=== PATIENT | female | born 1990 | race Caucasian/White ===

== ENCOUNTER 2016-10-31 04:07 | Inpatient (IN) ==
[2016-10-31 04:30] LABS: URINE SOURCE VOIDED
[2016-10-31 04:40] LABS: BILIRUBIN URINE NEGATIVE (NEGATIVE); BLOOD URINE NEGATIVE (NEGATIVE); CLARITY CLEAR (CLEAR); COLOR YELLOW; GLUCOSE URINE NEGATIVE (NEGATIVE); LEUKOCYTES URINE NEGATIVE (NEGATIVE); NITRITE URINE NEGATIVE (NEGATIVE); PH URINE 6.5; PROTEIN URINE NEGATIVE (NEGATIVE); UROBILINOGEN URINE NORMAL
[2016-10-31 04:47] LABS: UR AMPHETAMINES QUAL NONE DETECTED (NONE DETECT); UR BARBITUATES QUAL PRESUMPTIVE POSITIVE (NONE DETECT); UR BENZODIAZEPIN QUAL NONE DETECTED (NONE DETECT); UR CANNABINOIDS QUAL NONE DETECTED (NONE DETECT); UR COCAINE QUAL NONE DETECTED (NONE DETECT); UR MDMA QUAL NONE DETECTED (NONE DETECT); UR METHADONE QUAL NONE DETECTED (NONE DETECT); UR METHAMPHETAMINE QUAL NONE DETECTED (NONE DETECT); UR OPIATES QUAL NONE DETECTED (NONE DETECT); UR OXYCODONE QUAL NONE DETECTED (NONE DETECT); UR PCP QUAL NONE DETECTED (NONE DETECT); UR TCA QUAL NONE DETECTED (NONE DETECT)
[2016-10-31] MEDS ORDERED: REGLAN PO ONE (08:18)
[2016-10-31] MEDS ORDERED: LR 500 ML IV ONE (08:18)
[2016-10-31] MEDS ORDERED: ZOFRAN IV PRN (08:18)
[2016-10-31] MEDS ORDERED: PEPCID PO ONE (08:18)
[2016-10-31] MEDS ORDERED: KEFZOL 1 GM/D5W 1 GM/50 ML IVPB IV PRN (08:18)
[2016-10-31] MEDS ORDERED: PEPCID PO PRN (08:18)
[2016-10-31] MEDS ORDERED: PITOCIN 30 UNITS/LR 30 UNITS/500 ML IV.SOLN IV SCH (08:18)
[2016-10-31] MEDS ORDERED: PEPCID IV PRN (08:18)
[2016-10-31] MEDS ORDERED: TYLENOL PO PRN (08:18)
[2016-10-31] MEDS ORDERED: STADOL IV PRN (08:18)
[2016-10-31] MEDS ORDERED: SODIUM CHLORIDE 0.9% INJ SCH (08:30)
[2016-10-31] MEDS: LR 1,000 ML IV SCH ×2 (08:56→09:22)
[2016-10-31 09:10] LABS: MANUAL DIFF NEEDED? NO
[2016-10-31 09:12] LABS: BASO% 0.3 % (0.0-0.8); EOS# 0.04 X1000 (0.0-0.7); EOS% 0.4 % (0.0-10.0); HEMATOCRIT 41.3 % (37.0-47.0); HEMOGLOBIN 14.4 g/dL (12.0-16.0); IMM GRAN# 0.09 X1000 (0.0-0.04); IMM GRAN% 0.8 % (0.0-0.5); LYMPH# 2.68 X1000 (1.2-3.4); LYMPH% 23.6 % (20.5-51.1); MCHC 34.9 g/dL (33-37); MONO# 0.69 X1000 (0.11-0.59); MONO% 6.1 % (1.7-9.3); MPV 11.4 FL (7.4-10.4); NEUT% 68.8 % (42.2-75.2); PLT 189 X1000 (130-400); RBC 4.64 XMIL (4.2-5.4)
[2016-10-31] MEDS ORDERED: FENTANYL-BUPIV-NS 2 MCG-0.1% 200 ML EPIDURAL PRN (09:42)
[2016-10-31] MEDS ORDERED: FIORICET PO ONE (11:27)
[2016-10-31] MEDS ORDERED: MINERAL OIL ONE (12:24)
[2016-10-31] MEDS ORDERED: XYLOCAINE-MPF 1% INJ ONE (12:24)
--- NOTE | 2016-10-31 14:27 | OPERATIVE NOTE ---
PROCEDURE DATE: 10/31/2016 PREDELIVERY DIAGNOSES: 1. Intrauterine at 39+ weeks. 2. Late care. 3. Tobacco use. 4. Seizure disorder. 5. History of migraines. POSTDELIVERY DIAGNOSES: 1. Intrauterine at 39+ weeks. 2. Late care. 3. Tobacco use. 4. Seizure disorder. 5. History of migraines. PROCEDURE: Vaginal delivery. PHYSICIAN: Dr. Cuba Merlos. ANESTHESIA: Epidural by Dr. Brad Hedrick. FINDINGS: Viable female , 9/9 Apgars, 6 pounds 14 ounces. Cord was 3 vessels. Placenta was spontaneous, intact. There were no lacerations or tears. ESTIMATED BLOOD LOSS: 100 mL and all counts were correct. Please refer to Ms. Lowry' records. She started care at approximately 20 weeks with the above history. She did not have any laboratory testing during her , and this morning started having contractions. Presented early and was found to be in labor. Was augmented with Pitocin and artificially ruptured. Received epidural anesthesia and labored to complete without distress or dystocia and soon after crowned, at which point the bed was broken down, and she was prepped and draped. With continued contractions, she delivered a viable female infant, occiput anterior, over an intact perineum. Once head delivered, shoulders and rest of the body delivered without difficulty and the infant was placed on mother's abdomen. Cord was doubly clamped and cut. Care of infant was taken over by nursery personnel. Cord blood was obtained and it was noted to be a 3-vessel cord. Then gentle traction on the cord resulted in delivery of the placenta after approximately 2 minutes. It was inspected and found to be intact and then discarded. The perineum and vagina were inspected. There were no lacerations or tears. There were no clots or foreign material. All counts were correct. Estimated blood loss 100 mL. Expect routine . cc: Cuba Merlos MD
[2016-10-31] MEDS ORDERED: XYLOCAINE-MPF 1% INJ PRN (17:45)
[2016-10-31] MEDS ORDERED: MINERAL OIL PO PRN (17:45)
[2016-10-31] MEDS ORDERED: PITOCIN 30 UNITS/LR 30 UNITS/500 ML IV.SOLN IV ONE (17:45)
[2016-10-31] MEDS ORDERED: HYDROXYZINE PO PRN (17:45)
[2016-10-31] MEDS ORDERED: PERI MEDS (DERMOPLAST/NUPERCAINAL/TUCKS) MISC PRN (17:45)
[2016-10-31] MEDS ORDERED: CYTOTEC PO PRN (17:45)
[2016-10-31] MEDS ORDERED: HYDROXYZINE IM PRN (17:45)
[2016-10-31] MEDS ORDERED: BENADRYL PO PRN (17:45)
[2016-10-31] MEDS ORDERED: PITOCIN IM PRN (17:45)
[2016-10-31] MEDS ORDERED: AMBIEN PO PRN (17:45)
[2016-10-31] MEDS ORDERED: PITOCIN 20 UNITS/LR 20 UNITS/1,000 ML IV.SOLN IV SCH (17:45)
[2016-10-31] MEDS ORDERED: BOOSTRIX VACCINE IM ONE (17:45)
[2016-10-31] MEDS ORDERED: BENADRYL IV PRN (17:45)
[2016-10-31] MEDS ORDERED: M-M-R II VACCINE SUBQ ONE (17:45)
[2016-10-31] MEDS: PERICOLACE PO SCH (20:24)
[2016-10-31] MEDS: MOTRIN PO PRN (20:34)
[2016-10-31] MEDS: NORCO-5 PO PRN (20:34)
[2016-11-01] MEDS: NORCO-10 PO PRN (02:56)
[2016-11-01 06:55] LABS: MANUAL DIFF NEEDED? NO
[2016-11-01 08:04] LABS: BASO% 0.2 % (0.0-0.8); EOS# 0.11 X1000 (0.0-0.7); EOS% 0.9 % (0.0-10.0); HEMATOCRIT 33.6 % (37.0-47.0); HEMOGLOBIN 11.4 g/dL (12.0-16.0); IMM GRAN# 0.05 X1000 (0.0-0.04); IMM GRAN% 0.4 % (0.0-0.5); LYMPH# 2.29 X1000 (1.2-3.4); LYMPH% 18.8 % (20.5-51.1); MCHC 33.9 g/dL (33-37); MCV 91.3 FL (81-99); MONO# 0.74 X1000 (0.11-0.59); MONO% 6.1 % (1.7-9.3); MPV 11.6 FL (7.4-10.4); NEUT% 73.6 % (42.2-75.2); PLT 170 X1000 (130-400); RBC 3.68 XMIL (4.2-5.4)
[2016-11-01] MEDS: NORCO-5 PO PRN ×3 (08:45→20:10)
[2016-11-01] MEDS: MOTRIN PO PRN ×2 (08:45→20:10)
[2016-11-01] MEDS: PERICOLACE PO SCH (20:11)
[2016-11-02] MEDS: NORCO-10 PO PRN ×2 (01:15→07:44)
[2016-11-02] MEDS: MOTRIN PO PRN (07:44)
[2016-11-02 08:32] VITALS: BP 117/69
== END 2016-11-02 11:00 | disposition home or self-care (01) ==
LOC: P.OPLD 04:07 → P.LD 04:11 → P.WC 16:00
PROVIDERS: ADMIT Obstetrics & Gynecology; ATTEND Obstetrics & Gynecology

== ENCOUNTER 2016-12-07 15:46 | Observation (INO) ==
[2016-12-07 16:44] LABS: MANUAL DIFF NEEDED? NO
[2016-12-07 16:47] LABS: BASO% 0.4 % (0.0-0.8); EOS# 0.09 X1000 (0.0-0.7); EOS% 1.3 % (0.0-10.0); HEMATOCRIT 43.3 % (37.0-47.0); HEMOGLOBIN 15.1 g/dL (12.0-16.0); LYMPH# 2.32 X1000 (1.2-3.4); LYMPH% 32.5 % (20.5-51.1); MCH 30.8 PG (27-31); MCHC 34.9 g/dL (33-37); MCV 88.4 FL (81-99); MONO# 0.33 X1000 (0.11-0.59); MONO% 4.6 % (1.7-9.3); MPV 10.7 FL (7.4-10.4); NEUT% 61.2 % (42.2-75.2); PLT 266 X1000 (130-400)
[2016-12-07 17:01] LABS: AGAP 20; ALBUMIN 4.9 g/dL (3.5-5.0); ALKALINE PHOSPHATASE 61 U/L (32-104); BUN 10 mg/dL (8-22); CALCIUM 9.5 mg/dL (8.8-10.2); CHLORIDE 101 mmol/L (98-107); CK PROFILE 54 U/L (24-173); COSMO 279; GOT 21 U/L (10-30); GPT 24 U/L (10-36); MAGNESIUM 1.7 mg/dL (1.5-2.7); POTASSIUM 3.2 mmol/L (3.5-5.1); SODIUM 141 mmol/L (136-145); TCO2 20 mmol/L (25-35); TOTAL BILIRUBIN 0.55 mg/dL (0.20-1.00); TOTAL PROTEIN 7.9 g/dL (6.3-8.3)
[2016-12-07 17:02] LABS: INR 1.03; PROTIME 10.8 Seconds (9.2-11.7); PTT 27.4 Seconds (22.0-36.0)
[2016-12-07] MEDS ORDERED: KLOR-CON PO ONE (17:39)
--- NOTE | 2016-12-07 17:58 | Diag Imaging Result Doc PS360 ---
EXAM: CHEST-2 VIEWS INDICATION: palpitations TECHNIQUE: 2 views COMPARISON: 07/28/2015 FINDINGS: The lungs are grossly clear. There is no discrete pleural fluid collection or pneumothorax. The cardiomediastinal silhouette and central vasculature are grossly unremarkable. IMPRESSION: No evidence of acute pathology by plain radiograph. Electronically signed by Cuba Mari 12/07/2016 5:55 PM
--- NOTE | 2016-12-07 18:13 | PROVIDER DOCUMENTATION ---
This chart was entered by Elisabeth Ariza Scribe, acting as scribe for Sabina Hassan MD. HPI-General Adult - General Chief Complaint: Palpitations Stated Complaint: palpitations Time Seen by Provider: 12/07/16 15:59 Source: patient Allergies/Adverse Reactions: Patient Allergies Allergy/AdvReac Type Severity Reaction Status Date / Time No Known Allergies Allergy Verified 12/07/16 16:20 Home Medications: Home Medication List Medication Instructions Recorded Confirmed Last Taken Type Butalbital/APAP/Caffeine [Fioricet] 1 each PO TID #30 tablet 11/10/15 10/31/16 Unknown Rx Promethazine [Phenergan] 25 mg PO Q6H PRN PRN #20 tablet 11/10/15 10/31/16 Unknown Rx Hydrocodone/APAP 5 mg/325 mg 1 each PO Q3-4H PRN PRN #30 tablet 11/02/16 Unknown Rx [[place]-5] Ibuprofen [Motrin] 800 mg PO Q8H PRN PRN #30 tablet 11/02/16 Unknown Rx - History of Present Illness -Gen Adult Nature of Presenting Problems: Pt is a 26 year old female who came to the ED with a cc of having palpitations for the last three days. Pt reports the palpitations get worse when she gets up and moves around. pt [place] [facility] [place]. pt reports she called her gyno this morning reporting the palpitations and he said come to the ED. Location of Pain/Injury: reports: none Pain Radiation: reports: no radiation Quality of Pain: reports: none Onset/Duration: reports: 3 days ago Timing: reports: still present Context/Activities at Onset: reports: none Modifying Factors: improves with: nothing Similar Symptoms Previously?: Yes Recently seen or treated by another doctor?: Yes Review of Systems - Adult - REVIEW OF SYSTEMS - ADULT Constitutional: reports: weight loss. denies: chills, fatique Ears, Nose, Mouth & Throat: denies: nose pain, throat pain Cardiovascular: reports: irregular heart rate. denies: chest pain, heart murmur , orthopnea, syncope Respiratory: denies: cough, shortness of breath Gastrointestinal: denies: diarrhea, nausea, vomiting Past History - Adult - PAST MEDICAL HISTORY-ADULT Review of Records: reports: Old Records Reviewed, Nursing Assessment Review Major Childhood Illnesses: reports: denies history Cardiovascular: reports: denies history Respiratory: reports: denies history Gastrointestinal: reports: denies history Obstetrical/Gynecological: reports: denies history Genitourinary: reports: denies history Musculoskeletal: reports: denies history Neurological: reports: headaches/migraines, Seizures/Epilepsy Endocrine/Immune: reports: denies history Other Conditions: reports: denies history - PRIOR SURGERIES/PROCEDURES Surgical/Procedure History: reports: none - IMMUNIZATION STATUS Childhood Immunizations: UTD Flu Vaccine: See Nurse Assessment - FAMILY HISTORY Family History: reviewed, not pertinent Physical Exam-General - PHYSICAL EXAM-ADULT Initial Vital Signs Reviewed: Yes - CONSTITUTIONAL General Appearance: appears well, alert, no apparent distress - EYES Eyes: PERRL/EOMI, pink conjunctivae - HEAD, EARS, NOSE, MOUTH & THROAT HENMT: normocephalic/atraumatic, moist mucous membranes - NECK Neck: non-tender, full range of motion - RESPIRATORY Respiratory: chest non-tender, lungs clear - CARDIOVASCULAR Cardiovascular: normal peripheral pulses, regular rate, rhythm - GASTROINTESTINAL (ABDOMEN) Abdominal Exam: normal bowel sounds, non tender, soft - MUSCULOSKELETAL Back Exam: normal inspection, no CVA tenderness Extremity: non-tender - SKIN Integumentary: normal color, normal turgor - NEUROLOGIC Neurologic: grossly normal - PSYCHIATRIC Psych/Mental Status: normal mood/affect, normal thought content, normal thought process, oriented x 3 Progress - PLAN OF CARE/RESULTS Progress/Plan/Lab Results: Vital Signs - 8 hr 12/07/16 15:49 Temperature 98.5 F Pulse Rate 85 Respiratory Rate 18 Blood Pressure 117/65 O2 Sat by Pulse Oximetry 100 Orders Category Date Time Status Cardiac Monitoring DIRECTED Care 12/07/16 16:25 Active Saline Loc NOW Care 12/07/16 16:25 Active CHEST-2 VIEWS [RAD] Stat Exams 12/07/16 16:25 Ordered CBC WITH ELECTRONIC DIFF [HEME] Stat Lab 12/07/16 16:31 Ordered CK PROFILE [SP CHEM] Stat Lab 12/07/16 16:31 Ordered COMPREHENSIVE METABOLIC PANEL [CHEM] Stat Lab 12/07/16 16:31 Ordered D-DIMER [CHEM] Stat Lab 12/07/16 16:31 Ordered MAGNESIUM [CHEM] Stat Lab 12/07/16 16:31 Ordered PRO B-NATRIURETIC PEPTIDE Stat Lab 12/07/16 16:31 Ordered PROTIME WITH INR [COAG] Stat Lab 12/07/16 16:31 Ordered PTT [COAG] Stat Lab 12/07/16 16:31 Ordered TROPONIN T Stat Lab 12/07/16 16:31 Ordered TSH Stat Lab 12/07/16 16:31 Ordered EKG [EKG] Stat Ther 12/07/16 16:25 Ordered pt very anxious about leaving thinking the that they will occur again. i asked pt to stand and noted that her heart rate went to mid 140's. i advised pt to sit down. i will admit for eval of paraxysmal tachycardia. pt agree with plan case dw dr zee with hospitalist will evaluate the pt for admission Result Diagrams: 12/07/16 16:08 12/07/16 16:08 - REASSESSMENT Reassessment #1 Time Reassessed: 18:02 (Pt was concerned about being sent home due to her palpitations. When Dr. Hassan told the pt to stand the pt heart rate went up and slowly crept down when she sat back down. Pt will be admitted. ) Status: unchanged - EKG 1 Time of EKG reading by physician:: 16:08 EKG Read and Signed by:: Phill Alberts EKG Interpretation (*Must complete 3 of following elements*): Normal Rate: 67 Rhythm: NSR - XRAY 1 XRAY Study: Chest (NAD) Departure - Departure Date of Disposition Decision: 12/07/16 Time of Disposition Decision: 17:51 DIAGNOSIS: Palpitation, Paroxysmal tachycardia Disposition: ADMITTED INPATIENT 09 Certified Medical Emergency: Emergent Condition: Serious Additional Freetext Instructions: ED Follow Up Instructions: You have been treated by a care provider in the Emergency Department. These instructions are being provided to you so you can have an understanding of how to care for yourself upon discharge. Upon discharge from the Emergency Department, you are responsible for making arrangements for follow-up care by a physician of your choice. Take all prescribed medications as directed. Return to the Emergency Department immediately for any new or worsening symptoms. You may call the Physician Referral phone number at [phone] to obtain a list of Physicians who are taking new patients. Referrals and Follow-Ups: None,PCP [Primary Care Provider] - - Critical Care Note This patient required my direct & personal management of CC.: No Attestation - Physician/ KATIE Attestation The physician spent face to face time with patient:: Yes Advanced Practice Provider documentation review:: Supervising physician onsite and consulted in the evaluation and care of this patient. The physician did have a face to face encounter with the patient. This chart was documented by the indicated scribe, (Elisabeth Ariza Scribe) and accurately reflects the services I performed and decisions made by me, Sabina Hassan MD, as attested by the provider's signature.
[2016-12-07] MEDS ORDERED: ZOFRAN IV PRN (19:01)
[2016-12-07] MEDS ORDERED: TYLENOL PO PRN (19:01)
[2016-12-07] MEDS ORDERED: ATIVAN PO PRN (19:01)
[2016-12-07] MEDS ORDERED: NS + KCL 40 MEQ 1,000 ML IV ONE (19:01)
--- NOTE | 2016-12-07 19:27 | HISTORY AND PHYSICAL ---
HISTORY OF PRESENT ILLNESS: This is a 26-year-old who has an unremarkable past medical history. She has 3 children. Six weeks ago she had her third child with normal labor and delivery. She had a little bit of depression but otherwise unremarkable. She did state that she was taking some hydrocodone, it just felt like it was giving her more energy. At one point I think she took 5 in a day. She then experienced some palpitations which she experienced a couple of times with a hard pounding heart rate usually when she stands up. She had no orthostasis but when she stood up her heart rate did go up to 140 from 80 at rest. Denies chest pain. No fever or chills. She was breast-feeding at the time. IMAGING STUDIES: Her EKG does not show a pattern of accessory pathway such as Anil-Parkinson- White. NM interval appears unremarkable. No ST-segment changes. In sinus rhythm. ALLERGIES: She has no known drug allergies. PAST MEDICAL HISTORY: No real significant past medical history. FAMILY HISTORY: Pretty negative, unremarkable. SOCIAL HISTORY: Negative for alcohol or tobacco by her report. REVIEW OF SYSTEMS: General: She has lost some weight since she had the baby. She did not have much appetite. Cardiovascular: No other issues before these palpitations. No family history of cardiac problems. GASTROINTESTINAL: Unremarkable. Genitourinary: Unremarkable. Musculoskeletal: No significant complaints. Neurologic: No significant complaints. Hematologic/Endocrine: Unremarkable. PHYSICAL EXAMINATION: VITAL SIGNS: Temp 98.5 degrees, pulse 90, respirations 20, blood pressure 115/63. LUNGS: Clear in all lung fonseca. CARDIOVASCULAR EXAMINATION: Regular rate and rhythm. No murmur. S3. ABDOMEN: Soft. SKIN: Warm and dry. HEENT: CVP less than 6 cm. LABORATORY: White blood cell count 7130, hematocrit 43, platelet count 266,000. Sodium 141, potassium 3.2, chloride 101, bicarbonate 20, BUN 10, creatinine 0.7. Liver function is unremarkable. Albumin 3.0. Magnesium 1.7. Chest x-ray: No evidence of acute pathology. Urine test was negative. ASSESSMENT AND PLAN: Palpitations. This sounds like a little bit of dysautonomia that may be related to the recent hydrocodone. In fact she is just not eating much in a state. We will put her on a playground monitor. I will check an EKG and serial cardiac enzymes again tomorrow. We will check an echocardiogram in the morning. I will check an a.m. cortisol level, B12 and folate. It does not appear to show any cardiac pathology at this point and she is very low risk for cardiac ischemia. We will ask Cardiology to see her. This is very worrisome for her. She said she does not feel comfortable going home. Her blood pressure appears to be appropriate. We may decide to try some mild beta-janessa depending on how we do. We will check orthostasis this evening and in the morning. cc: Jason Fuentes MD
[2016-12-08 05:02] LABS: MANUAL DIFF NEEDED? NO
[2016-12-08 05:20] LABS: BASO% 0.4 % (0.0-0.8); EOS# 0.16 X1000 (0.0-0.7); EOS% 2.4 % (0.0-10.0); HEMATOCRIT 38.4 % (37.0-47.0); LYMPH# 2.31 X1000 (1.2-3.4); LYMPH% 34.3 % (20.5-51.1); MCH 30.4 PG (27-31); MCHC 33.9 g/dL (33-37); MCV 89.9 FL (81-99); MONO# 0.42 X1000 (0.11-0.59); MONO% 6.2 % (1.7-9.3); MPV 10.6 FL (7.4-10.4); NEUT% 56.7 % (42.2-75.2); PLT 248 X1000 (130-400); RBC 4.27 XMIL (4.2-5.4)
[2016-12-08] MEDS: PRILOSEC PO SCH ×2 (05:59→06:13)
[2016-12-08 06:37] LABS: AGAP 17; ALKALINE PHOSPHATASE 47 U/L (32-104); BUN 10 mg/dL (8-22); CALCIUM 9.3 mg/dL (8.8-10.2); CHLORIDE 106 mmol/L (98-107); CK PROFILE 41 U/L (24-173); COSMO 280; GOT 19 U/L (10-30); GPT 21 U/L (10-36); HDL 70 mg/dL (45-65); LDL 97 mg/dL; SODIUM 142 mmol/L (136-145); TCO2 19 mmol/L (25-35); TOTAL BILIRUBIN 0.49 mg/dL (0.20-1.00); TOTAL PROTEIN 6.7 g/dL (6.3-8.3); TRIGLYCERIDES 164 mg/dL (35-135); VLDL 33 mg/dL
--- NOTE | 2016-12-08 06:59 | PROGRESS NOTE ---
DATE: 12/08/2016 SUBJECTIVE: Ms. Lowry had a pretty good night. I noticed her first set of orthostatics, she had a little bit of tachycardia with the fluid. She seems to be feeling better. Also noticed that her sugar originally was in the 50s. I think this is from not eating or drinking. Her urine output was good at 1600 mL, almost 1700 mL. PHYSICAL EXAMINATION: Vital Signs: Temp 98 degrees, pulse 60, respirations 18, blood pressure 115/56. Lungs: Clear in all lung fonseca. Cardiovascular: Regular rate without murmurs or S3. Abdomen: Soft. Skin: Warm and dry. LABORATORY: White count 6740, hematocrit 38, platelet count of 248,000. Chemistry pending at this time. We did supplement her potassium. ASSESSMENT/PLAN: Palpitations which appeared probably sinus tachycardia, and I suspect it is related to the to the slight hypovolemia in the face of breast-feeding and not eating and drinking much do not see any evidence of accessory pathway on EKG and the supraventricular tachycardia seems to be consistent with sinus tachycardia. We will get an echocardiogram and ask Dr. Jaffe in Cardiology to review. Hopefully she can go home this afternoon. Put her on a regular diet. Encourage her to drink and eat, especially in the face of . cc: Jason Fuentes MD
[2016-12-08 07:00] LABS: POTASSIUM 4.6 mmol/L (3.5-5.1)
--- NOTE | 2016-12-08 07:23 | EKG Report ---
Test Performed on : 12/07/2016 4:08:43 PM Test Reason : Chest Pain Blood Pressure : / mmHG Vent. Rate : 067 BPM Atrial Rate : 067 BPM P-R Int : 120 ms QRS Dur : 074 ms QT Int : 404 ms P-R-T Axes : 013 023 020 degrees QTc Int : 426 ms Normal sinus rhythm. Normal ECG When compared with ECG of 07-DEC-2016 15:54, (Unconfirmed) Non-specific change in ST segment in Inferior leads T wave inversion less evident in Inferior leads Unconfirmed Result
--- NOTE | 2016-12-08 07:25 | EKG Report ---
Test Performed on : 12/08/2016 06:14:31 AM Test Reason : palpitations Blood Pressure : / mmHG Vent. Rate : 056 BPM Atrial Rate : 056 BPM P-R Int : 122 ms QRS Dur : 078 ms QT Int : 434 ms P-R-T Axes : 022 060 049 degrees QTc Int : 418 ms Sinus bradycardia. Otherwise normal ECG When compared with ECG of 07-DEC-2016 16:08, (Unconfirmed) ST less depressed in Inferior leads T wave amplitude has increased in precordial leads Confirmed by Everardo Jaffe DO ([id number]) on 12/09/2016 12:30:59 PM
[2016-12-08] MEDS ORDERED: ASPIRIN PO SCH (09:00)
--- NOTE | 2016-12-08 10:49 | CONSULTATION ---
DATE OF CONSULTATION: 12/08/2016 INDICATION FOR THE CONSULTATION: Palpitations. HISTORY OF PRESENT ILLNESS: Ms. Lowry is a 26-year-old, white female with a history of recent and delivery; she is about 6 weeks at this time. Over the last 4 days or so she reports that she has had episodes of palpitations that will last for around 30 seconds to a minute or so. These episodes have been extremely fatiguing to her, and she has had very little oral intake over the last 3-4 days due to this. She has not had any overt syncope, but again she reports just quite a bit of fatigue associated with these palpitation episodes. No chest pain. No syncope. No orthopnea. PAST MEDICAL HISTORY: Significant for no issues. SOCIAL HISTORY: Negative for alcohol or tobacco per her report, and she has apparently had negative UDS as well. FAMILY HISTORY: Significant for hypertension. REVIEW OF SYSTEMS: A 10 system review of systems is negative, except for those things mentioned in HPI. PHYSICAL EXAMINATION: Vital Signs: She has been afebrile. Heart rates have been documented over this hospitalization, as well as an ER visit a couple of days ago ranging between the 50s and the 90s. Blood pressure most recently is 99/47. She had 2 sets orthostatics done; 1 early this morning at 0500 hours and 1 a little later at 0820 hours. These were not evident for orthostasis. She had another episode performed at 8 p.m. yesterday; this 1 was evident for a heart rate rise from sitting to standing of 64 to 95 suggesting orthostasis on that visit. She did not have 1 when checked on her ER visit on the second to [place]. General: Generally she is in no acute distress. HEENT: Oropharynx is moist. Normal dentition. Eye examination shows pink conjunctivae, white sclerae. Neck: Examination shows no obvious thyromegaly or thyroid tenderness. Cardiovascular: She is in a regular rate and rhythm. She has no murmurs, no S3, no lower extremity edema. No carotid bruits. Chest: Clear bilaterally. No increased work of breathing. Abdomen: Soft, nontender, nondistended. She has no obvious organomegaly. Skin Exam: Warm and dry throughout without any rashes. Neurological: Moving all extremities well. Cranial nerves 2-12 are intact without any sensation deficits. Psychiatric: Alert and oriented, pleasant. Normal mood and affect. PERTINENT DATA: White count 6.7, hematocrit is 38, platelet count is 248. Sodium 142, potassium 4.6. Yesterday her potassium was 3.2. Her BUN is 10, creatinine 0.7 which is identical from yesterday. Her albumin level is 4. ProBNP is normal. Cardiac enzymes negative. B 12 was normal. TSH is normal as is T4 and cortisol levels. She had a normal UDS on the second, a negative test on the third. Chest x-ray was unremarkable. She had an EKG December 08 at 0614 hours showing sinus rhythm. No evidence of pre-excitation. EKG on December 07 at 1608 hours shows sinus rhythm, no evidence of pre-excitation, normal [place] interval. Her telemetry overnight has been unremarkable showing sinus rhythm. ASSESSMENT: Palpitations. PLAN: Echocardiogram was reviewed in the room and was unremarkable for any sort of abnormalities. She had normal ejection fraction. No significant valvular abnormalities. Her laboratory evaluations have been unremarkable. I will arrange for a 30 day outpatient ДМИТРИЙ from our office. I will make arrangements for her to follow up with us in the future after the ДМИТРИЙ is done. She has not had any evidence of any sort of ectopy or abnormal heart rhythms during her episodes, either here or on presentation to the ER. I would not recommend medical therapy at this point. From my standpoint, she can be discharged home per cardiovascular evaluation. cc: Elio Jaffe MD
[2016-12-08 12:15] VITALS: BP 102/58
--- NOTE | 2016-12-08 15:51 | DISCHARGE SUMMARY ---
ADMISSION DATE: 12/07/2016 DISCHARGE DATE: 12/08/2016 HOSPITAL COURSE: A 25-year-old with unremarkable past medical history. Had 3 children. Six weeks ago she had her third child, normal labor and delivery. She had a little bit of depression, but otherwise unremarkable. She is taking some hydrocodone and felt this was giving her energy. At one point, she took 5 I think in a day, experienced some palpitations, experienced a couple times heart pounding when she stood up. She had no orthostasis by report, but then when measured on the floor she had orthostasis with increased heart rate and decreased blood pressure. [place] she was a little volume depleted. She is breast feeding. She had not been eating or drinking well, but had cardiology evaluate. He looked at her echocardiogram which was completely unremarkable. He is going to set her up to get an event monitor. It sounds like these palpitations were not accompanied by any presyncope or syncope, and there is no sort of heart rhythm that was documented. It was atypical. So, they are going to arrange for a 30-day patient cardiac event monitor with cardiology and let her go home. DISPOSITION: As far as discharge medications, I do not think we would start any medical therapy at this time. We want to make sure she is eating and drinking. Blood pressures look good. cc: Jason Fuentes MD
--- NOTE | 2016-12-08 18:26 | ECHO REPORT ---
ORDER DATE: 12/08/2016 INTERPRETING PHYSICIAN: Dr. Landers REQUESTING PHYSICIAN: CLINICAL INDICATIONS: A 23-year-old female with palpitations. M-MODE MEASUREMENTS: Right ventricle: 2.2 cm. Left ventricle end diastole: 4.1 cm. Left ventricle end systole: 2.8 cm. Posterior wall: 0.9 cm. Interventricular septum: 0.9 cm. Left atrium: 3.2 cm. Aortic root: 2.9 cm. SUMMARY OF 2-DIMENSIONAL IMAGING: The left ventricular function is normal. Ejection fraction 66%. No wall motion abnormality is noted. Ventricular volumes are normal. The right ventricle is normal. The mitral valve looks normal. Color flow mapping unremarkable. Pulse wave Doppler of mitral inflow is normal. Tissue Doppler of septal and lateral mitral annulus averages 17 cm per second. There is no diastolic dysfunction. The aortic valve looks normal. Color flow mapping unremarkable. The pulmonic valve looks normal. Color flow mapping unremarkable. The tricuspid valve shows a mild degree of regurgitation. Pulmonary pressure 25 mmHg. The inferior vena cava is not dilated. There is no evidence of masses or thrombus. No pericardial effusion. IMPRESSION: In summary, this echocardiographic study is well within normal limits. cc: MD Jason Teran MD
== END 2016-12-08 16:25 | disposition home or self-care (01) ==
LOC: ED 15:46 → 3S 15:46
PROVIDERS: ATTEND Emergency Medicine